=== PATIENT | female | born 1950 | race Caucasian/White ===

== ENCOUNTER 2022-01-26 11:57 | Emergency (ER) | payer OTHER ==
[2022-01-26 12:53] VITALS: BP 141/61; PULSE 97; RESP 18; TEMP 97.7; BMI 26.2
[2022-01-26] MEDS ORDERED: ACETAMINOPHEN 500 MG TABLET (FP) PO ONE (16:25)
[2022-01-26] MEDS ORDERED: ACETAMINOPHEN 500 MG TABLET (FP) ONE (16:26)
[2022-01-26 16:53] LABS: BASO % 0.4 % (0-2.0); EOS % 1.5 % (0-4.5); HEMATOCRIT 38.4 % (32.4-45.2); HEMOGLOBIN 12.8 GM/dL (10.7-15.3); LYMPH % 33.4 % (8-40); MCH 29.5 pg (25.7-33.7); MCHC 33.4 g/dl (32.0-36.0); MEAN CELL VOLUME 88.5 fl (80-96); MEAN PLT VOLUME 9.3 fl (7.5-11.1); MONO % 7.3 % (3.8-10.2); NEUT % 57.4 % (42.8-82.8); PLATELET COUNT 164 10^3/uL (134-434); RBC 4.34 M/mm3 (3.60-5.2); RDW 12.9 % (11.6-15.6); WHITE BLOOD COUNT 4.6 K/mm3 (4.0-10.0)
[2022-01-26 16:54] LABS: URINE APPEARANCE CLEAR; URINE BILIRUBIN NEGATIVE (NEGATIVE); URINE COLOR YELLOW; URINE GLUCOSE (UA) NEGATIVE (NEGATIVE); URINE KETONE NEGATIVE (NEGATIVE); URINE LEUK ESTERASE NEGATIVE (NEGATIVE); URINE NITRITE NEGATIVE (NEGATIVE); URINE PROTEIN NEGATIVE (NEGATIVE); URINE UROBILINOGEN 0.2 mg/dL (0.2-1.0)
[2022-01-26 17:30] LABS: BLOOD UREA NITROGEN 12.8 mg/dL (7-18); CALCIUM 9.8 mg/dL (8.5-10.1)
[2022-01-26 17:34] LABS: CREATININE 0.7 mg/dL (0.55-1.3)
[2022-01-26 17:35] LABS: BILIRUBIN,TOTAL 0.4 mg/dL (0.2-1); TOT PROT 7.6 g/dl (6.4-8.2)
== END 2022-01-26 20:54 | disposition home or self-care (01) ==
LOC: JER 11:57 → JERFT 11:57
DX: R10.32 Left lower quadrant pain (principal)
CPT/HCPCS: 36415; 74177-TC; 80053; 81003; 85025; 87086; 99285-25

== ENCOUNTER 2022-02-12 11:55 | Emergency (ER) | payer OTHER ==
[2022-02-12 12:10] VITALS: BP 169/75; PULSE 73; RESP 16; TEMP 97.8; BMI 26.4
[2022-02-12] MEDS ORDERED: ACETAMINOPHEN 500 MG TABLET (FP) PO ONE (13:14)
[2022-02-12] MEDS ORDERED: ACETAMINOPHEN 325 MG TABLET (FP) ONE (13:49)
== END 2022-02-12 14:45 | disposition home or self-care (01) ==
LOC: JERFT 11:55
PROC: 0H96XZZ Drainage of Back Skin, External Approach (ICD-10-PCS; principal; 2022-02-12)
DX: L02.212 Cutaneous abscess of back [any part, except buttock and flank] (principal)
CPT/HCPCS: 10060; 99283-25

== ENCOUNTER 2022-02-14 19:03 | Emergency (ER) | payer OTHER ==
[2022-02-14 20:19] VITALS: BP 132/69; PULSE 65; RESP 19; TEMP 98; BMI 26.8
== END 2022-02-14 20:54 | disposition home or self-care (01) ==
LOC: JERFT 19:03 → JER 19:03 → JERFT 20:54
DX: Z48.00 Encounter for change or removal of nonsurgical wound dressing (principal)
CPT/HCPCS: 99281-25